=== PATIENT | female | born 1985 | race Caucasian/White ===

== ENCOUNTER 2017-07-09 06:33 | Emergency (ER) | payer OTHER ==
[~2017-07-09] VITALS: Ht 160 cm; Wt 159.5 kg
[~2017-07-09 06:33] MED LIST: NOHOMEMEDS; PERCOCET 5/31 TABLET PO; ZOFRAN ODT4 MG PO
[2017-07-09 07:18] LABS: BASOPHIL COUNT 0.1 K/uL (0-0.1); EOSINOPHIL (%) 5.3 % (0-5); EOSINOPHIL COUNT 0.4 K/uL (0-0.3); HEMATOCRIT 40.4 % (36.0-46.0); IMMATURE GRANULOCYTE (%) 0.4 % (0.0-0.7); INSTRUMENT ABS NEUTROPHIL CT 5.1 K/uL; LYMPHOCYTE COUNT 2.3 K/uL (1.0-2.8); MCH 25.7 PG (29.0-34.0); MCHC 31.9 G/DL (30.0-36.0); MCV 80.6 FL (83-99); MEAN PLAT.VOLUME 10.4 uM^3 (9.5-12.4); MONOCYTE (%) 6.3 % (3-12); MONOCYTE COUNT 0.5 K/uL (0-0.8); NEUTROPHIL (%) 60.2 % (45-76); NEUTROPHIL COUNT 5.1 K/uL (1.8-6.4); PLATELET COUNT 325 K/uL (156-360); RBC DIS.WIDTH-CV 14.7 % (11.8-14.6); RED BLOOD COUNT 5.01 M/uL (3.80-5.20); WHITE BLOOD COUNT 8.4 K/uL (4.1-10.2)
[2017-07-09 07:41] LABS: CHLORIDE 107 mEq/L (99-109); POTASSIUM 4.5 mEq/L (3.7-5.4); SODIUM 135 mEq/L (136-147)
[2017-07-09 07:43] LABS: GLUCOSE 129 mg/dL (70-99)
[2017-07-09 07:45] LABS: ANION GAP 7 MEQ/L (2-14); TOTAL BILIRUBIN 0.5 mg/dL (0.0-1.0)
[2017-07-09 07:47] LABS: ALKALINE PHOSPHATASE 108 IU/L (3-129); GFR ESTIMATE (CALCULATED) > 59 mL/min/
[2017-07-09 07:48] LABS: UREA NITROGEN (BUN) 6 mg/dL (9-23)
[2017-07-09 07:50] LABS: LIPASE 22 U/L (1.0-51.0)
[2017-07-09] MEDS ORDERED: PERCOCET 5/31 TABLET PO (09:09)
[2017-07-09 09:39] VITALS: BP 120/67
== END 2017-07-09 09:41 | disposition home or self-care (01) ==
LOC: EME 06:33
PROVIDERS: Emergency Medicine
DX: K80.70 Calculus of gallbladder and bile duct without cholecystitis without obstruction (principal); K76.0 Fatty (change of) liver, not elsewhere classified
CPT/HCPCS: 76705; 80053; 81003; 83690; 84703; 85025; 99281; 99284; J1885; J2405